=== PATIENT | female | born 1965 | race Caucasian/White ===

== ENCOUNTER → 2023-07-11 10:22 | Outpatient (REF) | payer OTHER, SELFPAY | LOC: HWRAD 10:22 | PROVIDERS: ATTENDING PHYSICIAN Family Medicine | DX: N28.9 Disorder of kidney and ureter, unspecified (principal) | CPT/HCPCS: 76770 ==

== ENCOUNTER 2025-05-09 15:34 | Emergency (ER) | payer OTHER, SELFPAY ==
[2025-05-09 15:39] VITALS: BP 132/81
[2025-05-09 16:01] LABS: Hematocrit 41.1 % (37.0-47.0); Hemoglobin 14.2 g/dL (12.0-16.0); Mean Corp Hgb Conc. 34.5 g/dL (33.0-37.0); Mean Corpuscular Volume 84.6 fL (81.0-99.0); Nucleated Red Blood Cells % 0 %; Platelet Count 248 10^3/uL (130-400); Red Cell Dist. Width 13.8 % (11.5-14.5)
[2025-05-09 16:27] LABS: ALT (SGPT) 18 U/L (0-35); AST (SGOT) 16 U/L (14-36); Albumin 4.6 g/dl (3.5-5.0); Alkaline Phosphatase 70 U/L (38-126); Blood Urea Nitrogen 21 mg/dl (7-17); Calcium 9.5 mg/dl (8.4-10.2); Carbon Dioxide 29 mmol/L (22-30); Chloride 97 mmol/L (98-107); Glucose 139 mg/dl (70-99); Lipase 50 U/L (23-300); Potassium 3.8 mmol/L (3.5-5.1); Sodium 135 mmol/L (135-145); Total Protein 7.9 g/dl (6.3-8.2); eGFR 47.66
[2025-05-09 18:18] VITALS: BP 127/83
--- NOTE | 2025-05-09 18:33 | ED.GENMED ---
History of Present Illness
General
Chief Complaint: Abdominal Symptoms
Time Seen by Provider: 05/09/25 18:01
History of Present Illness
History of Present Illness:
59-year-old female with history of GERD presents to the emergency department for evaluation of nausea vomiting, epigastric pain, and coffee-ground emesis that began yesterday. She notes that she is 3 weeks status post initiation of Zepbound.
Denies any black or bloody stools. No fever, chills, night sweats, dysuria, or diarrhea. No history abdominal surgeries. Does not take NSAIDs, use tobacco or alcohol products routinely.
Past History
Social History
Tobacco: Non-smoker
Employment: Employed
Review of Systems
Review of Systems
Allergies reviewed?: Yes
All Other Systems: ROS reviewed and negative except as documented in HPI and ROS
Phy Exam
Physical Exam
Physical Exam:
GEN: Well appearing, NAD, WDWN
HEENT: Oral mucosa moist, no scleral icterus
Cardiac: Tachycardic, regular
Lung: No respiratory distress, no tachypnea, lungs clear to auscultation
Abdomen: Soft, moderate epigastric tenderness, no rigidity, negative Torrez sign, no peritoneal signs
MSK: No gross deformity or injuries
Skin: Good color, no pallor or jaundice, no rashes
Neuro: AO x3, moves all extremities freely
Psych: Calm, cooperative
Course
Orders/Labs/Results
Orders:
Orders
05/09/25 15:42
Electrocardiogram (*1) Urgent
Reason for Study: Abdominal Pain
IV Insert/Care/Rem.- Treatment PRN
05/09/25 15:43
EKG- Treatment ONCE
05/09/25 15:52
Complete Blood Count/With Diff Urgent
Comprehensive Metabolic Panel Urgent
Lipase Urgent
05/09/25 18:34
Ondansetron Injectable [Zofran] 4 mg IV NOW STA
US Abdomen Complete/Upper Urgent
Comment:
Reason For Exam: epigastric pain
05/09/25 18:35
Lactated Ringers [Lr] 1,000 ml IV BOLUS
05/09/25 20:32
Pantoprazole [Protonix IV] 40 mg IV NOW STA
Abnormal Lab Results
05/09/25
15:52
WBC 19.8 H 10^3/uL
(4.8-10.8)
Abs Immat Gran (auto) 0.1 H 10^3/uL
(0-0.05)
Absolute Neuts (auto) 16.7 H 10^3/uL
(1.4-6.5)
Absolute Monos (auto) 1.4 H 10^3/uL
(0.1-0.6)
Neutrophils % 84.7 H %
(42.2-75.2)
Lymphocytes % 7.5 L %
(20.5-51.1)
Chloride 97 L mmol/L
(98-107)
BUN 21 H mg/dl
(7-17)
Creatinine 1.3 H mg/dL
(0.6-1.0)
Glucose 139 H mg/dl
(70-99)
05/09/25 15:52
05/09/25 15:52
Vital Signs
Initial and Last Documented VS:
Initial Vital Signs
Temp Pulse Resp BP Pulse Ox
98.8 F 116 18 132/81 97
05/09/25 15:39 05/09/25 15:39 05/09/25 15:39 05/09/25 15:39 05/09/25 15:39
Last Documented Vital Signs
Temp Pulse Resp BP Pulse Ox
98.8 F 116 18 127/83 97
05/09/25 15:39 05/09/25 15:39 05/09/25 15:39 05/09/25 18:18 05/09/25 18:34
MDM/Problems Addressed
MDM/Problems Addressed:
Patient reporting coffee-ground emesis however hemoglobins are stable. She has no significant risk factors for peptic ulcer disease and has no melena to suggest brisk upper GI bleed. She does have significant leukocytosis which is most likely
volume related coupled with stress response due to vomiting. She has a reassuring abdominal exam and ultrasound reveals no acute cholecystitis. I suspect her symptoms are related to her GLP-1 use and I recommended she discontinue this. Given that
she is hemodynamically stable we will treat with high-dose PPI and Carafate as an outpatient, will coordinate close follow-up through the GI office
*Pulse Oximetry
SaO2: 97
Oxygen Mode of Delivery: Room air
Patient hypoxic: no
*Critical Care Note
Total Time (30-74mins, 75-104mins- exclusive of procedures): Not Applicable
ED Attending Note
-
Portions of this chart may have been created with voice recognition software.� Occasional wrong word or��sound alike� substitutions may have occurred due to the inherent limitations of voice recognition software.
Discharge Plan
Departure
Patient Disposition: Home (Routine Discharge)
Date of Disposition: 05/09/25
Time of Disposition: 21:19
Patient with high blood pressure during this ER visit?: No
Discharge Problem:
Nausea and vomiting, Gastritis
Instructions: Nausea and Vomiting, Adult (DC)
Prescriptions:
New
pantoprazole 40 mg tablet,delayed release (DR/EC)
40 mg PO BID Qty: 30 0RF
sucralfate [Carafate] 1 gram tablet
1 g PO AC Qty: 60 0RF
Referrals:
Corey Carrera MD [Active, Gastroenterology]
Sunita Taylor DO [Family Provider, Family Practice]
Interventions
Interventions:
*Risk Screen - Suicide Last Done: 05/09/25 15:39
*General Assessment Last Done: 05/09/25 18:23
*Neglect/Abuse Screening Last Done: 05/09/25 18:23
*ED- Fall Risk Assessment Last Done: 05/09/25 18:23
*ED COVID-19 Vaccine History Last Done: 05/09/25 18:23
*ED Influenza Vaccine History Last Done: 05/09/25 18:23
*Nursing Disposition Last Done: 05/09/25 22:05
HH-Lqnhog-Jiyofxxdos Assessment Last Done: 05/09/25 18:23
Discharge Date and Time
Discharge Date/Time: 05/09/25 22:06
Print Language: URDU
[2025-05-09] MEDS: ZOFRAN 4 MG IV (18:55)
[2025-05-09] MEDS: LR 1000 IV (18:55)
[2025-05-09] MEDS: PROTONIX IV 40 MG IV (21:14)
== END 2025-05-09 22:06 | disposition home or self-care (01) ==
LOC: EMR 15:34
PROVIDERS: Emergency Medicine; EMERGENCY PHYSICIAN Emergency Medicine; FAMILY PHYSICIAN Family Medicine
DX: K29.70 Gastritis, unspecified, without bleeding (principal); D72.829 Elevated white blood cell count, unspecified; K21.9 Gastro-esophageal reflux disease without esophagitis
CPT/HCPCS: 99284; 96374; 96375; 96361; 76700; 80053; 83690; 85025; 93005